=== PATIENT | male | born 1995 | race African-American/Black ===

== ENCOUNTER → 2019-06-04 11:45 | Outpatient (CLI) | payer OTHER, SELFPAY ==
[2019-06-04 12:21] LABS: Basophils % 0.4 % (0.1-2.0); Eosinophils # 0.1 K/mm3 (0.0-0.4); Eosinophils % 1.1 % (0.1-12.0); Hematocrit 49.7 % (42.0-52.0); Hemoglobin 15.7 g/dL (14.1-18.0); Lymphocytes % 26.7 % (10-50); Mean Corpuscular HGB Conc 31.5 g/dL (31.8-35.4); Mean Corpuscular Hemoglobin 27.4 pg (27.0-31.2); Mean Corpuscular Volume 86.8 fl (80-94); Mean Platelet Volume 7.9 fl (7.4-10.4); Monocytes # 0.5 K/mm3 (0.1-1.0); Monocytes % 7.3 % (1.7-9.3); Neutrophils # 4.8 K/mm3 (1.8-7.8); Neutrophils % 64.6 % (37.0-80.0); Platelet Count 329 K/mm3 (142-424); Red Blood Count 5.73 M/mm3 (4.60-6.20); Red Cell Distribution Width 13.3 % (11.5-17.5); White Blood Count 7.5 K/mm3 (4.8-10.8)
[2019-06-04 13:19] LABS: Alanine Aminotransferase 20 U/L (12-78); Albumin Level 4.4 g/dl (3.5-5.0); Albumin/Globulin Ratio 1.3 (1.1-1.8); Alkaline Phosphatase 61 U/L (38-126); Anion Gap 13.5 mEq/L (5-15); Aspartate Amino Transferase 27 U/L (17-59); Bilirubin,Total 0.3 mg/dl (0.2-1.3); Blood Urea Nitrogen 12 mg/dl (9-20); Calcium 10.2 mg/dl (8.4-10.2); Carbon Dioxide 24 mmol/L (22.0-30.0); Chloride 106 mmol/L (98-107); Chol/HDL Ratio 6.8 (1-3.5); Cholesterol 197 mg/dl (140-200); Estimated Glomerular Filt Rate 91 ml/min (>60); GFR (African American) 110 ML/MIN (>60); Globulin 3.4 g/dL (1.3-3.2); Glucose 96 mg/dl (74-100); HDL Cholesterol 29 mg/dl (40-60); Potassium 4.5 mmoL/L (3.5-5.1); Sodium 139 mmol/L (136-145); Total Protein,Serum 7.8 g/dl (6.3-8.2); Triglycerides 154 mg/dl (30-150); VLDL Cholesterol 31 mg/dL (0-40)
[2019-06-04 15:18] LABS: Hemoglobin A1C 5.6 % (4.0-6.0)
== END ==
PROVIDERS: Visit Provider Internal Medicine Adolescent Medicine
DX: Z00.00 Encounter for general adult medical examination without abnormal findings (principal)
CPT/HCPCS: 36415; 80053; 80061; 83036; 85025